=== PATIENT | male | born 1960 | race Caucasian/White ===

== ENCOUNTER 2022-12-04 11:08 | Emergency (ER) | payer BC, OTHER ==
[~2022-12-04] VITALS: Ht 165.1 cm; Wt 77.0 kg
[2022-12-04 14:48] VITALS: BP 125/85
== END 2022-12-04 14:46 | disposition home or self-care (01) ==
LOC: ER 11:08
DX: R25.1 Tremor, unspecified (principal); R20.2 Paresthesia of skin; Z98.890 Other specified postprocedural states
CPT/HCPCS: 93971

== ENCOUNTER → 2024-05-21 | Outpatient (CLI) | payer OTHER ==
[2024-05-21 10:37] LABS: Urine Bacteria None Seen /hpf (None Seen); Urine WBC None Seen /hpf (0 - 3)
[2024-05-21 10:49] LABS: Basophils # (auto) 0 10 ^3/uL (0-0.2); Basophils % (auto) 0.5 % (0.0-2.0); Eosinophils # (auto) 0.1 10 ^3/uL (0-0.8); Eosinophils % (auto) 1.2 % (0.0-7.0); Hematocrit 44.8 % (41.0-53.0); Hemoglobin 15.1 g/dL (13.5-17.5); Lymphocytes # (auto) 2.1 10 ^3/uL (0.4-5.4); Lymphocytes % (auto) 25.4 % (10.0-50.0); Mean Corpuscular Hemoglobin 30.1 pg (28.0-32.0); Mean Corpuscular Hgb Conc. 33.7 g/dL (32.0-36.0); Mean Corpuscular Volume 89.4 fL (80.0-100.0); Monocytes # (auto) 0.8 10 ^3/uL (0-1.3); Monocytes % (auto) 9.4 % (0.0-12.0); Neutrophils # (auto) 5.2 10 ^3/uL (1.6-8.6); Neutrophils % (auto) 63.5 % (37.0-80.0); Platelet Count (auto) 299 10^3/uL (140-450); Red Blood Cells 5.01 10^6/uL (4.5-5.90); Red Cell Distribution Width 14.8 % (11.8-14.3); White Blood Cell 8.3 10^3/uL (4.4-10.8)
[2024-05-21 11:09] LABS: Urine Blood Negative /uL (Negative); Urine Clarity Clear (Clear); Urine Color Light-Yellow (Yellow); Urine Protein, UAD Negative (Negative); Urine Specific Gravity 1.012 (1.001-1.035); Urine Urobilinogen Normal (Negative); Urine pH 6.5 (5.0-9.0)
[2024-05-21 11:22] LABS: Alanine Aminotransferase 13 U/L (7-40); Albumin 4.4 g/dL (3.2-4.8); Alkaline Phosphatase 41 U/L (46-116); Anion Gap 6 (5-15); Aspartate Aminotransferase 10 U/L (13-40); BUN/Creatinine Ratio 12.5 (10.0-20.0); Bilirubin, Total 0.9 mg/dL (0.2-1.0); Blood Urea Nitrogen 11 mg/dL (9-23); Calcium 9.4 mg/dL (8.7-10.4); Carbon Dioxide 25 mmol/L (20-30); Chloride 108 mmol/L (98-107); Cholesterol 306 mg/dL (< 200); Glucose 100 mg/dL (74-106); HDL Cholesterol 59 mg/dL (40-59); LDL Cholesterol 217 mg/dL (< 100); Potassium 3.9 mmol/L (3.5-5.1); Sodium 139 mmol/L (136-145); Triglycerides 137 mg/dL (< 150)
[2024-05-21 11:23] LABS: Total Protein 7.1 g/dL (5.7-8.2)
== END | disposition home or self-care (01) ==
LOC: LAB 10:13
PROVIDERS: ATTEND Nurse Practitioner Family
DX: Z00.01 Encounter for general adult medical examination with abnormal findings (principal); E78.5 Hyperlipidemia, unspecified
CPT/HCPCS: 36415; 80053; 80061; 81001; 84443; 85025

== ENCOUNTER 2024-07-02 23:01 | Emergency (ER) | payer OTHER ==
[~2024-07-02] VITALS: Ht 165.1 cm; Wt 70.6 kg
[2024-07-02] MEDS: IPRATROPIUM BROM 0.5 MG/2.5ML INH SOL NEB ONE (23:37)
[2024-07-02] MEDS: ALBUTEROL SULF 2.5 MG/0.5ML(0.5%) NEB SOLN NEB ONE (23:37)
[2024-07-02] MEDS: methylPREDNISolone SOD SUCC 125 MG/2 ML VL IV ONE (23:38)
[2024-07-02] MEDS: diphenhdrAMINE HCL 50 MG/1 ML VL IV ONE (23:39)
[2024-07-02] MEDS: FAMOTIDINE (10MG/ML) 2ML VL IV ONE (23:39)
[2024-07-02 23:55] LABS: Basophils # (auto) 0 10 ^3/uL (0-0.2); Basophils % (auto) 0.1 % (0.0-2.0); Eosinophils # (auto) 0.1 10 ^3/uL (0-0.8); Eosinophils % (auto) 0.7 % (0.0-7.0); Hematocrit 44.3 % (41.0-53.0); Hemoglobin 14.9 g/dL (13.5-17.5); Lymphocytes # (auto) 1.8 10 ^3/uL (0.4-5.4); Lymphocytes % (auto) 21.1 % (10.0-50.0); Mean Corpuscular Hgb Conc. 33.5 g/dL (32.0-36.0); Mean Corpuscular Volume 89.5 fL (80.0-100.0); Monocytes # (auto) 0.9 10 ^3/uL (0-1.3); Monocytes % (auto) 11.1 % (0.0-12.0); Neutrophils # (auto) 5.7 10 ^3/uL (1.6-8.6); Platelet Count (auto) 269 10^3/uL (140-450); Red Blood Cells 4.95 10^6/uL (4.5-5.90); Red Cell Distribution Width 14.4 % (11.8-14.3); White Blood Cell 8.5 10^3/uL (4.4-10.8)
[2024-07-03 00:08] LABS: INR 1.03 (0.9-1.15); Partial Thromboplastin Time 30.4 SEC (24.5-34.5); Prothrombin Time 10.9 sec (9.3-11.8)
[2024-07-03 00:12] LABS: Alanine Aminotransferase 17 U/L (7-40); Albumin 4.4 g/dL (3.2-4.8); Alkaline Phosphatase 41 U/L (46-116); Anion Gap 9 (5-15); Aspartate Aminotransferase 14 U/L (13-40); BUN/Creatinine Ratio 10.2 (10.0-20.0); Bilirubin, Total 0.8 mg/dL (0.2-1.0); Blood Urea Nitrogen 10 mg/dL (9-23); Calcium 9.4 mg/dL (8.7-10.4); Carbon Dioxide 23 mmol/L (20-31); Chloride 108 mmol/L (98-107); Glucose 120 mg/dL (74-106); Potassium 3.7 mmol/L (3.5-5.1); Sodium 140 mmol/L (136-145); Total Protein 6.9 g/dL (5.7-8.2)
[2024-07-03] MEDS ORDERED: EPIN0.1I11 IJ (03:21)
[2024-07-03] MEDS ORDERED: PRED20TA2 PO (03:21)
[2024-07-03 03:30] VITALS: BP 112/74; PULSE 54; RESP 12; TEMP 97.7; O2SAT 97
== END 2024-07-03 03:50 | disposition home or self-care (01) ==
LOC: ER 23:01
DX: L50.0 Allergic urticaria (principal); R22.0 Localized swelling, mass and lump, head; Z79.899 Other long term (current) drug therapy
CPT/HCPCS: 36415; 80053; 83735; 83880; 84484; 85025; 85610; 85730; 93005; 94640; 96374; 96375; 99284; J1200; J2919; J3490

== ENCOUNTER 2024-07-05 10:26 | Emergency (ER) | payer OTHER ==
[~2024-07-05] VITALS: Ht 165.1 cm; Wt 69.6 kg
[~2024-07-05 10:26] MED LIST: EPIN0.1I11 IJ; PRED20TA2 PO
[2024-07-05] MEDS: cefTRIAXone SOD 1,000 MG VL IM ONE (11:15)
[2024-07-05] MEDS: methylPREDNISolone SOD SUCC 125 MG/2 ML VL IM ONE (11:15)
[2024-07-05] MEDS ORDERED: AZIT500T66 PO (11:28)
[2024-07-05] MEDS ORDERED: METH4PAK PO (11:28)
[2024-07-05 11:30] VITALS: BP 125/81; PULSE 60; RESP 17; TEMP 97.7; O2SAT 97
== END 2024-07-05 11:34 | disposition home or self-care (01) ==
LOC: ER 10:26
DX: T78.40XA Allergy, unspecified, initial encounter (principal); K12.2 Cellulitis and abscess of mouth; Z79.899 Other long term (current) drug therapy; X58.XXXA Exposure to other specified factors, initial encounter
CPT/HCPCS: 96372; 99284; J0696; J2919

== ENCOUNTER 2025-04-13 06:06 | Outpatient (CLI) | payer MEDICAID ==
[~2025-04-13 06:06] MED LIST changes: +AZIT500T66 PO; +METH4PAK PO
[2025-04-13 08:37] LABS: Hematocrit 43.1 % (41.0-53.0); Hemoglobin 14.7 g/dL (13.5-17.5); Mean Corpuscular Hemoglobin 29.5 pg (28.0-32.0); Mean Corpuscular Volume 86.7 fL (80.0-100.0); Nucleated Red Blood Cells % 0.1 %
[2025-04-13 09:28] LABS: Alanine Aminotransferase 15 U/L (7-40); Albumin 4.4 g/dL (3.2-4.8); Anion Gap 10 (5-15); BUN/Creatinine Ratio 16.8 (10.0-20.0); Blood Urea Nitrogen 16 mg/dL (9-23); Calcium 10.1 mg/dL (8.7-10.4); Carbon Dioxide 26 mmol/L (20-31); Glucose 89 mg/dL (74-106); Potassium 4.0 mmol/L (3.5-5.1); Sodium 145 mmol/L (136-145); Total Protein 6.7 g/dL (5.7-8.2); Triglycerides 77 mg/dL (< 150)
[2025-04-13 09:29] LABS: Bilirubin, Total 0.7 mg/dL (0.2-1.0); HDL Cholesterol 59 mg/dL (40-59)
[2025-04-13 09:39] LABS: Alkaline Phosphatase 38 U/L (46-116); Chloride 109 mmol/L (98-107); Cholesterol 270 mg/dL (< 200)
== END 2025-04-13 17:00 | disposition home or self-care (01) ==
LOC: LAB 06:06
PROVIDERS: ATTEND Nurse Practitioner Family
DX: E78.5 Hyperlipidemia, unspecified (principal); R35.1 Nocturia; Z00.01 Encounter for general adult medical examination with abnormal findings
CPT/HCPCS: 36415; 80053; 80061; 84153; 84443; 85025